=== PATIENT | male | born 2000 | race Caucasian/White ===

== ENCOUNTER 2021-09-24 22:14 | Emergency (ER) | payer SELFPAY ==
[2021-09-24 23:19] LABS: BARBITURATE SCREEN,URINE NEGATIVE (NEGATIVE)
[2021-09-24 23:20] LABS: BENZODIAZEPINES SCREEN,URINE NEGATIVE (NEGATIVE); BUPRENORPHINE SCREEN,URINE NEGATIVE (NEGATIVE); METHAMPHETAMINE SCREEN, URINE NEGATIVE (NEGATIVE); THC SCREEN,URINE 50 NG/ML NEGATIVE (NEGATIVE)
[2021-09-24 23:40] LABS: CHLORIDE,CL 101 mmol/L (98-107); SODIUM,NA 139 mmol/L (136-145)
[2021-09-24 23:42] LABS: ANION GAP 17.3 mmol/L (5-15)
[2021-09-24] MEDS ORDERED: Potassium Chloride 20 MEQ Tab.ER PO ONE (23:52)
== END 2021-09-25 00:15 | disposition home or self-care (01) ==
LOC: VM.ED 22:14
DX: R07.9 Chest pain, unspecified (principal); R00.2 Palpitations; F10.10 Alcohol abuse, uncomplicated; E87.6 Hypokalemia; Z72.0 Tobacco use; Y90.0 Blood alcohol level of less than 20 mg/100 ml
CPT/HCPCS: 36415; 71046; 80053; 80305; 80307; 81003; 83735; 84443; 84484; 85025; 93005; 99285; A9270